=== PATIENT | male | born 1950 | race Caucasian/White ===

== ENCOUNTER 2019-01-22 08:37 | Emergency (ER) | payer BC, MEDICARE ==
[2019-01-22] MEDS ORDERED: IPRATROPIUM-ALBUTEROL 3 ML NEB INHALATION STA (08:52)
[2019-01-22] MEDS ORDERED: ACETAMINOPHEN TAB 325 MG TAB PO STA (08:52)
[2019-01-22] MEDS ORDERED: IBUPROFEN 600 MG TAB PO STA (08:52)
--- NOTE | 2019-01-22 10:01 | ED ---
URI HPI - General Chief Complaint: Upper Respiratory Infection Stated Complaint: Cold symptoms Time Seen by Provider: 01/22/19 08:45 Source: patient, RN notes reviewed Mode of arrival: ambulatory Limitations: no limitations - History of Present Illness Initial Comments: This a 68-year-old male presents emergency Department with chief complaint of cough congestion fever. Patient states she's been sick for last 4-5 days. Patient call his PCP who called him and azithromycin. He states has not helped. He has not taken anything for his recent fever or chills. Patient states he has no underlying lung disease including asthma and COPD. Denies any chest pain. Patient states she is aches all over, has mild nasal congestion, sore throat and a minimally productive cough. - Related Data Home Medications Medication Instructions Recorded Confirmed Lisinopril 20 mg PO DAILY 10/22/16 01/22/19 Metoprolol Tartrate 50 mg PO DAILY 10/22/16 01/22/19 traMADol HCL [Tramadol HCl] 50 mg PO DAILY 10/22/16 01/22/19 Azithromycin [Zithromax] 500 mg PO DAILY 01/22/19 01/22/19 Previous Rx's Medication Instructions Recorded predniSONE 50 mg PO DAILY #5 tab 01/22/19 Allergies Allergy/AdvReac Type Severity Reaction Status Date / Time No Known Allergies Allergy Verified 01/22/19 09:26 Review of Systems ROS Statement: Those systems with pertinent positive or pertinent negative responses have been documented in the HPI. ROS Other: All systems not noted in ROS Statement are negative. Past Medical History Past Medical History: Hypertension History of Any Multi-Drug Resistant Organisms: None Reported Past Surgical History: Joint Replacement Past Psychological History: No Psychological Hx Reported Smoking Status: Current some day smoker Past Alcohol Use History: None Reported Past Drug Use History: None Reported General Exam Limitations: no limitations General appearance: alert, in no apparent distress Head exam: Present: atraumatic, normocephalic, normal inspection Eye exam: Present: normal appearance, PERRL, EOMI. Absent: scleral icterus, conjunctival injection, periorbital swelling ENT exam: Present: normal exam, normal oropharynx, mucous membranes moist, TM's normal bilaterally, normal external ear exam Neck exam: Present: normal inspection, full ROM. Absent: tenderness, meningismus, lymphadenopathy Respiratory exam: Present: wheezes (Minimal expiratory). Absent: normal lung sounds bilaterally, respiratory distress, rales, rhonchi, stridor Cardiovascular Exam: Present: regular rate, normal rhythm, tachycardia, normal heart sounds. Absent: systolic murmur, diastolic murmur, rubs, gallop, clicks GI/Abdominal exam: Present: soft, normal bowel sounds. Absent: distended, tenderness, guarding, rebound, rigid Course Vital Signs 01/22/19 01/22/19 01/22/19 08:39 08:54 09:02 Temperature 100 F H Pulse Rate 107 H 92 88 Respiratory 20 Rate Blood Pressure 150/71 O2 Sat by Pulse 92 L Oximetry 01/22/19 01/22/19 10:10 10:29 Temperature 100.0 F H 98.5 F Pulse Rate 82 Respiratory 18 Rate Blood Pressure 139/84 O2 Sat by Pulse 96 Oximetry Medical Decision Making - Medical Decision Making 68-year-old male presented for URI symptoms. Chest x-ray, influenza testing was obtained. Patient feels improved after Tylenol Motrin. Chest x-ray shows atelectasis possible developing infiltrate. This is felt to be viral nature. Patient we given a course of steroids will finish his antibiotics that he started those recently. Patient may have underlying influenza even though influenza swab was negative. - Lab Data Lab Results 01/22/19 Range/Units 08:00 Influenza Type A RNA Not Detected (Not Detectd) Influenza Type B (PCR) Not Detected (Not Detectd) Disposition Clinical Impression: Upper respiratory infection, Bronchitis Disposition: HOME SELF-CARE Condition: Stable Instructions (If sedation given, give patient instructions): Upper Respiratory Infection (ED) Additional Instructions: Please return to the Emergency Department if symptoms worsen or any other concerns. Prescriptions: predniSONE 50 mg PO DAILY #5 tab Is patient prescribed a controlled substance at d/c from ED?: No Referrals: Flo Fountain DO [Primary Care Provider] - 1-2 days Time of Disposition: 11:09
[2019-01-22 10:30] VITALS: RESP 18
--- NOTE | 2019-01-22 10:38 | XR ---
EXAMINATION TYPE: XR chest 2V DATE OF EXAM: 01/22/2019 COMPARISON: NONE HISTORY: Cough and fever. TECHNIQUE: Frontal and lateral views of the chest are obtained. FINDINGS: There is linear opacity in the lingula confirmed on 2 views. Some lobulation of the right hemidiaphragm is present. No pleural effusion or pneumothorax is seen bilaterally. The cardiac silho uette size is upper limits of normal. The osseous structures are intact. IMPRESSION: Linear lingular opacity favors atelectasis, developing acute infiltrate felt less likely but not excluded.
[2019-01-22 11:19] VITALS: BP 130/72; PULSE 70; TEMP 98.2
== END 2019-01-22 11:18 | disposition home or self-care (01) ==
LOC: EC 08:37
DX: J40 Bronchitis, not specified as acute or chronic (principal); J06.9 Acute upper respiratory infection, unspecified; J98.11 Atelectasis; R00.0 Tachycardia, unspecified; I10 Essential (primary) hypertension; F17.200 Nicotine dependence, unspecified, uncomplicated; Z79.891 Long term (current) use of opiate analgesic; Z79.899 Other long term (current) drug therapy; Z96.60 Presence of unspecified orthopedic joint implant
CPT/HCPCS: 71046; 87502; 94640; 99283

== ENCOUNTER → 2021-09-16 | Outpatient (CLI) | payer MEDICARE ==
[2021-09-16 12:25] LABS: African American GFR (CKD) >90 (>60 ml/min/1.73 sqM); Blood Urea Nitrogen 23 mg/dL (9-20); Non-African American GFR(CKD) >90 (>60 ml/min/1.73 sqM)
--- NOTE | 2021-09-16 12:54 | US ---
EXAMINATION TYPE: US carotid duplex BILAT DATE OF EXAM: 09/16/2021 COMPARISON: NONE CLINICAL HISTORY: G20 Parkinson's. EXAM MEASUREMENTS: RIGHT: Peak Systolic Velocity (PSV) cm/sec ----- Right CCA: 118.9 ----- Right ICA: 88.8 ----- Right ECA: 156.9 ICA/CCA ratio: 0.75 RIGHT: End Diastole cm/sec ----- Right CCA: 20.4 ----- Right ICA: 21.5 ----- Right ECA: 28.8 LEFT: Peak Systolic Velocity (PSV) cm/sec ----- Left CCA: 150.1 ----- Left ICA: 103.0 ----- Left ECA: 118.1 ICA/CCA ratio: 0.69 LEFT: End Diastole cm/sec ----- Left CCA: 22.3 ----- Left ICA: 22.8 ----- Left ECA: 21.5 VERTEBRALS (direction of flow): Right Vertebral: Antegrade Left Vertebral: Antegrade Rhythm: Arrhythmia IMPRESSION: No sonographic evidence for hemodynamically significant stenosis in either carotid artery. Irregular heart rhythm is noted. Criteria for Assigning % of Stenosis / Diameter reduction (Estimation based on the indirect measurements of the internal carotid artery velocities (ICA PSV). 1. Normal (no stenosis)=ICA PSV < 125 cm/s: ratio < 2.0: ICA EDV<40 cm/s. 2. Less than 50% stenosis=ICA PSV < 125 cm/s: ratio < 2.0: ICA EDV<40 cm/s. 3. 50 to 69% stenosis=ICA PSV of 125 to 230 cm/s: ration 2.0 ? 4.0: ICA EDV 40-100 cm/s. 4. Greater than 70% stenosis to near occlusion= ICA PSV > 230 cm/s: ratio > 4.0: ICA EDV > 100 cm/s. 5. Near occlusion= ICA PSV velocities may be low or undetectable: variable ratio and ICA EDV. 6. Total occlusion=unable to detect flow.
--- NOTE | 2021-09-16 13:40 | CT ---
EXAMINATION TYPE: CT brain wo/w con DATE OF EXAM: 09/16/2021 COMPARISON: None HISTORY: 71-year-old male G2 0 Parkinson's. TECHNIQUE: Examination was done in axial plane without intravenous contrast. Coronal and sagittal r econstructions performed. CT DLP: 2361.2 mGycm Automated exposure control for dose reduction was used. FINDINGS: There is no evidence of acute intracranial hemorrhage, acute ischemic change, or extra-axial fluid c ollection. There is a cystic-appearing mass of the sella measuring 2.1 cm craniocaudal by 1.5 cm AP by 1.7 cm wi de. There seems to be some compressed pituitary tissue anteriorly and towards the left. Possible 5 mm enhancing nodular thickening along the left superior margin (refer to postcontrast sagittal image 31 , axial image 25, and coronal image 34. There is suprasellar extension to abut the undersurface of the optic chiasm. Otherwise, no additional mass or mass effect. No enhancing intracranial lesions. Dural venous sinuses are patent. There is no effacement of cerebral sulci or basal subarachnoid cisterns. There is no hydrocephalus. There is no midline shift. Marsh-white matter distinction is preserved. Couple small polyps or mucosal retention cyst within the left maxillary sinus measuring up to 9 mm. L eftward nasal septal deviation. Opacified right-sided conchal bullosa. Mild mucosal thickening ethmoi d air cells. Mastoid air cells are well pneumatized. Orbits and globes are intact. IMPRESSION: 1. There appears to be a cystic lesion of the sella measuring up to 2.1 cm abutting the undersurface of the optic chiasm. Compressed pituitary tissue appears to be displaced anteriorly and towards the l eft. 2. Possible 5 mm nodular enhancement along the left superior margin. 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 Recommend pituitary MRI for further evalu ation. 3. Otherwise, no acute intracranial abnormality or abnormal enhancing lesion seen.
== END | disposition home or self-care (01) ==
LOC: RADUSWWP 10:26
PROVIDERS: ATTEND Family Medicine
DX: G20 Parkinson's disease (principal); I49.9 Cardiac arrhythmia, unspecified
CPT/HCPCS: 82565; 84520; 93880; 70470; 36415; Q9967

== ENCOUNTER → 2021-09-22 | Outpatient (CLI) | payer MEDICARE ==
--- NOTE | 2021-09-22 13:14 | EEG ---
ELECTROENCEPHALOGRAM REPORT DATE OF SERVICE: 09/22/2021 PREAMBLE: This is a 71-year-old male with Parkinson disease, has tremors. This study is performed to rule out any seizure activity. EEG FINDINGS: This is a 21 channel digital EEG recording with video component, utilizing 10/20 international system with referential and bipolar montages. The background consists of well developed, well regulated, moderate voltage activity in 8 hertz alpha. Background is posterior dominant and reactive to eye opening and closing. Photic driving response was not seen. Mild drowsiness was seen with appearance of some bilaterally symmetric theta frequency rhythm. Deeper stages of sleep were not seen. No focal or generalized epileptiform activity was seen. EKG channel showed some arrhythmia. IMPRESSION: This is a normal awake and drowsy EEG. No focal, lateralized, or epileptiform activity was seen. MMODL / IJN: [id number] /
== END ==
LOC: NEUROMAIN 07:57
PROVIDERS: ATTEND Family Medicine
DX: G20 Parkinson's disease (principal); F17.200 Nicotine dependence, unspecified, uncomplicated
CPT/HCPCS: 95819

== ENCOUNTER → 2021-11-16 | Outpatient (CLI) | payer MEDICARE ==
--- NOTE | 2021-11-17 06:17 | MR ---
EXAMINATION TYPE: MR pituitary wo/w con DATE OF EXAM: 11/16/2021 COMPARISON: Head CT scan 09/16/2021 HISTORY: Cystic lesion of sella CONTRAST: Standard multiplanar, multisequence MRI departmental protocol images were obtained without contrast a nd with 9 mL intravenous Gadavist gadolinium contrast. FINDINGS: There is a large cystic mass in the sella turcica which measures 18 x 25 x 18 mm. There is irregular thick wall with enhancement. The pituitary stalk appears to be deviated significantly to the left robert e. The mass extends superiorly up to the optic chiasm with impingement on the chiasm. There is expansion of the sella turcica with depression of the floor on the right side. There is norm al aeration of the sphenoid sinus. IMPRESSION: Large thick walled enhancing cystic sellar mass. There is extensive differential diagnosis. Mass is p redominantly on the right side. This does not have features of a giant aneurysm. Mass appears not sig nificantly different than the CT scan of 09/16/2021.
== END | disposition home or self-care (01) ==
LOC: RADMRIMAIN 17:18
PROVIDERS: ATTEND Family Medicine
DX: E23.6 Other disorders of pituitary gland (principal)
CPT/HCPCS: 70553; A9585

== ENCOUNTER → 2021-12-29 | Outpatient (CLI) | payer MEDICARE ==
[2021-12-29 16:35] LABS: African American GFR (CKD) 111.6 (60.0-200.0); Albumin 4.2 g/dL (3.8-4.9); Albumin/Globulin Ratio 1.4 (1.60-3.17); Anion Gap 11.9 mmol/L (10.00-18.00); BUN/Creat Ratio 37.43 Ratio (12.00-20.00); Blood Urea Nitrogen 26.2 mg/dL (9.0-27.0); Calcium 9.6 mg/dL (8.7-10.3); Carbon Dioxide 26.1 mmol/L (20.0-27.5); Follicle Stimulating Hormone 2.5 mIU/mL; Luteinizing Hormone 2.3 mIU/mL; Non-African American GFR(CKD) 96.3 (60.0-200.0); Potassium 4.3 mmol/L (3.5-5.5); T4, Free (Free Thyroxine) 1.24 ng/dL (0.800-1.800); Total Bilirubin 0.6 mg/dL (0.30-1.20); Total Protein 7.2 g/dL (6.2-8.2)
[2021-12-29 16:36] LABS: Prolactin 5.8 ng/mL (2.100-17.700)
== END | disposition home or self-care (01) ==
LOC: LABWHC1 11:05
PROVIDERS: ATTEND Internal Medicine Endocrinology, Diabetes & Metabolism
DX: D35.2 Benign neoplasm of pituitary gland (principal)
CPT/HCPCS: 36415; 80053; 82024; 82533; 83001; 83002; 84146; 84305; 84403; 84439; 84443; 84480

== ENCOUNTER → 2022-01-04 | Outpatient (CLI) | payer MEDICARE ==
[2022-01-04 15:17] LABS: T4, Free (Free Thyroxine) 1.13 ng/dL (0.800-1.800)
[2022-01-05 02:17] LABS: ACTH 16.5 pg/mL (0.00-45.99)
== END | disposition home or self-care (01) ==
LOC: LABWHC1 10:28
PROVIDERS: ATTEND Internal Medicine Endocrinology, Diabetes & Metabolism
DX: D35.2 Benign neoplasm of pituitary gland (principal)
CPT/HCPCS: 36415; 82024; 82533; 84403; 84436; 84439; 84443; 84480

== ENCOUNTER → 2022-02-16 | Outpatient (CLI) | payer MEDICARE ==
--- NOTE | 2022-02-16 13:17 | XR ---
EXAMINATION TYPE: XR wrist complete RT DATE OF EXAM: 02/16/2022 COMPARISON: None available INDICATION: Pain and swelling of the right wrist for a week. No injury TECHNIQUE: 4 views of the right wrist. FINDINGS: Osteopenia. Degenerative changes of the first interphalangeal joint with osteophytosis. Tiny soft tis pritesh calcification is seen adjacent to the first carpometacarpal articulation. No definite acute fract ure line identified. Soft tissue swelling surrounding the wrist joint. Slight widening of the scapholunate space, underlyi ng ligamentous injury cannot be excluded, please correlate clinically. IMPRESSION: No definite fracture line identified. Incidental findings as described above.
== END | disposition home or self-care (01) ==
LOC: RADXRMAIN 11:10
PROVIDERS: ATTEND Family Medicine
DX: M25.531 Pain in right wrist (principal)

== ENCOUNTER → 2022-04-24 | Outpatient (CLI) | payer MEDICARE ==
[2022-04-24 14:47] LABS: Prostate Specific Antigen 2.5 ng/mL (0.00-4.50)
[2022-04-24 14:51] LABS: HCT 55.9 % (39.6-50.0); HGB 17.9 g/dL (13.0-17.0); MCH 29.4 pg (27.0-32.0); MCV 91.9 fL (80.0-97.0); Mean Platelet Volume 12.4 fL (9.5-12.2); NRBC Per 100 WBC 0 /100 WBCS (0.0-0.0); Platelet Count 170 X 10*3/uL (140-440); RBC 6.08 X 10*6/uL (4.40-5.60); RDW 13.5 % (11.5-14.5); WBC 7.44 X 10*3/uL (4.50-10.00)
== END | disposition home or self-care (01) ==
LOC: LABWHC1 10:28
PROVIDERS: ATTEND Internal Medicine Endocrinology, Diabetes & Metabolism
DX: E29.1 Testicular hypofunction (principal)
CPT/HCPCS: 36415; 84153; 84403; 85027

== ENCOUNTER → 2022-06-15 | Outpatient (CLI) | payer MEDICARE ==
[2022-06-15 14:41] LABS: HCT 51.5 % (39.6-50.0); MCV 90.8 fL (80.0-97.0); Mean Platelet Volume 11.9 fL (9.5-12.2); NRBC Per 100 WBC 0 /100 WBCS (0.0-0.0); Platelet Count 199 X 10*3/uL (140-440); RBC 5.67 X 10*6/uL (4.40-5.60); RDW 15.9 % (11.5-14.5); WBC 7.07 X 10*3/uL (4.50-10.00)
[2022-06-15 16:48] LABS: Prostate Specific Antigen 2.3 ng/mL (0.00-4.50); T4, Free (Free Thyroxine) 1.13 ng/dL (0.800-1.800)
[2022-06-16 03:52] LABS: ACTH 11.6 pg/mL (0.00-45.99)
== END | disposition home or self-care (01) ==
LOC: LABWHC1 09:43
PROVIDERS: ATTEND Internal Medicine Endocrinology, Diabetes & Metabolism
DX: E29.1 Testicular hypofunction (principal); D35.2 Benign neoplasm of pituitary gland
CPT/HCPCS: 36415; 82024; 82533; 84153; 84403; 84439; 84443; 84480; 85027

== ENCOUNTER → 2022-10-20 | Outpatient (CLI) | payer MEDICARE ==
--- NOTE | 2022-10-22 20:31 | MR ---
EXAMINATION TYPE: MR pituitary wo/w con DATE OF EXAM: 10/20/2022 COMPARISON: MRI pituitary gland November 16, 2021 HISTORY: Follow-up on pituitary tumor. Prior abnormal MRI. TECHNIQUE: Multiplanar, multisequence images of the brain is performed without and with IV contrast, utilizing 9 mL intravenous Gadavist . Pituitary gland protocol. FINDINGS: Persistent sellar mass with suprasellar extension having thin-walled cyst or cystic compone nt along the right aspect. There is rim enhancement with more solid nodular enhancement along the sup erior posterior right aspect redemonstrated coronal image 13. This could reflect thickened enhancing sella deviated to left midline shift and posteriorly. The lesion measures roughly 2.1 cm craniocaudal dimension by 2.0 cm AP diameter by 2.1 cm transversely sagittal image 14 and coronal image 13. Discr etely demonstrated abutting the optic chiasm and redemonstrated inferiorly slightly depressing the ri ght aspect of the sella turcica coronal image 11. No gross hydrocephalus. No significant change from prior. IMPRESSION: There is 2.1 cm solid and cystic sellar mass with suprasellar extension consistent with n eoplasm redemonstrated. No significant change from prior MRI.
== END | disposition home or self-care (01) ==
LOC: RADMRIMAIN 09:25
PROVIDERS: ATTEND Psychiatry & Neurology Neurology
DX: D44.3 Neoplasm of uncertain behavior of pituitary gland (principal)
CPT/HCPCS: 70553; A9585

== ENCOUNTER → 2023-03-05 | Outpatient (CLI) | payer MEDICARE ==
[2023-03-05 16:46] LABS: Basophils # (A) 0.04 X 10*3/uL (0.00-0.10); Basophils % (A) 0.5 %; Eosinophils % (A) 1.3 %; HCT 49.6 % (39.6-50.0); HGB 16.4 g/dL (13.0-17.0); Immature Grans, Automated 0.3 %; Lymphocytes # (A) 1.44 X 10*3/uL (0.90-5.00); Lymphocytes % (A) 18.2 %; MCH 31.1 pg (27.0-32.0); MCHC 33.1 g/dL (32.0-37.0); MCV 94.1 fL (80.0-97.0); Mean Platelet Volume 11.8 fL (9.5-12.2); Monocytes # (A) 0.51 X 10*3/uL (0.20-1.00); Monocytes % (A) 6.4 %; NRBC Per 100 WBC 0 /100 WBCS (0.0-0.0); Neutrophils # (A) 5.82 X 10*3/uL (1.80-7.70); Neutrophils % (A) 73.3 %; Platelet Count 170 X 10*3/uL (140-440); RBC 5.27 X 10*6/uL (4.40-5.60); RDW 12.8 % (11.5-14.5); WBC 7.93 X 10*3/uL (4.50-10.00)
== END | disposition home or self-care (01) ==
LOC: LABWHC1 09:33
PROVIDERS: ATTEND Psychiatry & Neurology Neurology
DX: C75.1 Malignant neoplasm of pituitary gland (principal); E55.9 Vitamin D deficiency, unspecified; R53.83 Other fatigue
CPT/HCPCS: 36415; 82024; 82306; 82533; 82607; 83003; 84146; 84439; 84443; 85025

== ENCOUNTER → 2023-05-25 | Outpatient (CLI) | payer MEDICARE ==
[2023-05-25 12:57] LABS: Partial Thromboplastin Time 26.4 sec (22.0-30.0); Prothrombin Time 10.2 sec (9.0-12.0)
[2023-05-25 15:59] LABS: HCT 47.2 % (39.6-50.0); HGB 15.6 d/dL (12.0-15.0); MCH 30.6 pg (27.0-32.0); MCHC 33.1 d/dL (32.0-37.0); MCV 92.7 FL (80.0-97.0); Mean Platelet Volume 11.7 FL (9.5-12.2); NRBC Per 100 WBC 0 X 10*3/uL (0.00-0.01); Platelet Count 191 X 10*3/uL (140-440); RBC 5.09 X 10*6/uL (4.40-5.60); RDW 13.5 % (11.5-14.5); WBC 9.29 X 10*3/uL (4.50-10.00)
== END | disposition home or self-care (01) ==
LOC: LABWHC1 11:00
PROVIDERS: ATTEND Psychiatry & Neurology Neurology
DX: T14.8XXA Other injury of unspecified body region, initial encounter (principal); R58 Hemorrhage, not elsewhere classified
CPT/HCPCS: 36415; 85027; 85610; 85730

== ENCOUNTER → 2024-03-20 | Outpatient (CLI) | payer MEDICARE ==
--- NOTE | 2024-03-20 13:40 | MR ---
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 Specialized thin s equences were obtained through the pituitary gland/sella turcica. Pre-and post gadolinium sequences were obtained. IV Contrast: 9.5 cc Gadavist FINDINGS: Cystic mass in the pituitary fossa with at least one on smaller septation versus daughter cyst. In totality measuring 21 x 14 x 16 mm. Is stable in size from prior imaging. No mural nodularit y definitively visualized or enhancing component. The powell-white junctions, ventricular system, and basal cisterns appear unremarkable. The morphology of the pituitary gland is within normal limits. The intracranial arterial flow voids are intact. 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 Fin ding stable in size from 10/20/2022.
== END | disposition home or self-care (01) ==
LOC: RADMRIMAIN 11:30
PROVIDERS: ATTEND Psychiatry & Neurology Neurology
DX: D44.3 Neoplasm of uncertain behavior of pituitary gland (principal)
CPT/HCPCS: 70553; A9585

== ENCOUNTER → 2025-05-22 | Outpatient (CLI) | payer MEDICARE ==
--- NOTE | 2025-05-22 12:51 | FL ---
EXAMINATION TYPE: FL barium swallow w video DATE OF EXAM: 05/22/2025 12:46 PM COMPARISON: None. CLINICAL INDICATION: Male, 74 years old with history of R13.19 OTHER DYSPHAGIA; A number of thin and thick substances were ingested under the care of the department of speech pathol ogy. There is no evidence of aspiration or penetration. There is penetration and aspiration with th in barium and honey. No additional administration was performed. Large osteophytes\spurs involving the cervical spine appear to be compressing the esophagus. 89 images, and 1 minute and 2 seconds of fluoroscopy. The DAP not provided. IMPRESSION: 1. Aspiration with thin barium and honey. Large cervical spine spurs\osteophytes appear to be compre ssing the esophagus. [facility], , 05/22/2025 12:48 PM
== END | disposition home or self-care (01) ==
LOC: RADFLMAIN 11:48
PROVIDERS: ATTEND Family Medicine
DX: R13.19 Other dysphagia (principal); M25.78 Osteophyte, vertebrae
CPT/HCPCS: 74230